=== PATIENT | male | born 1960 | race Caucasian/White ===

== ENCOUNTER 2022-07-07 00:44 | Emergency (ER) | payer BC ==
[2022-07-07] MEDS ORDERED: Aspirin 81 MG Tab.Chew PO ONE (01:23)
[2022-07-07] MEDS ORDERED: Nitroglycerin 0.4 MG Tab.SL SL PRN (01:23)
[2022-07-07 01:30] LABS: BASOPHILS ABSOLUTE AUTO 0.03 K/mm3 (0.01-0.08); BASOPHILS PERCENT AUTO 0.3 % (0.1-1.2); EOSINOPHILS ABSOLUTE AUTO 0.23 K/mm3 (0.04-0.54); EOSINOPHILS PERCENT AUTO 2.4 (0.8-7.0); HEMATOCRIT 43.6 % (40.1-51.0); HEMOGLOBIN 15.3 gm/dl (13.7-17.5); IMMATURE GRAN ABSOLUTE AUTO 0.01 K/mm3 (0.00-0.10); IMMATURE GRAN PERCENT AUTO 0.1 % (<=1.0); LYMPHOCYTES PERCENT AUTO 14.4 % (21.8-53.1); MEAN CORPUSCULAR HEMOGLOBIN 31.1 pg (25.7-32.2); MEAN CORPUSCULAR HGB CONC 35.1 g/dl (32.2-35.5); MEAN CORPUSCULAR VOLUME 88.6 fl (79.0-92.2); MEAN PLATELET VOLUME 9.4 fl (9.4-12.3); MONOCYTES ABSOLUTE AUTO 0.61 K/mm3 (0.30-0.82); MONOCYTES PERCENT AUTO 6.3 % (5.3-12.2); NEUTROPHILS ABSOLUTE AUTO 7.41 K/mm3 (1.78-5.38); NEUTROPHILS PERCENT AUTO 76.5 % (34.0-67.9); PLATELET COUNT,PLT 213 K/mm3 (163-337); RED BLOOD CELL COUNT 4.92 M/mm3 (4.63-6.08); WHITE BLOOD CELL COUNT,WBC 9.69 K/mm3 (4.23-9.07)
[2022-07-07] MEDS ORDERED: Sodium Chloride 0.9% 1,000 ML IV SCH (01:30)
[2022-07-07 01:36] LABS: INR 1.02; PROTHROMBIN TIME 10.9 SECONDS (9.7-12.0)
[2022-07-07 01:37] LABS: D-DIMER QUANTITATIVE 0.2 mg/L (0.19-0.50)
[2022-07-07 01:38] LABS: PTT,PARTIAL THROMBOPLSTIN TIME 24.9 SECONDS (21.7-31.4)
[2022-07-07 01:46] LABS: A/G RATIO 1.2 (1-2); ALANINE AMINOTRANSFERASE,ALT 57 U/L (16-63); ALBUMIN 4.1 g/dl (3.4-5.0); ALKALINE PHOSPHATASE 54 U/L (46-116); ANION GAP 10.2 (5-15); ASPARTATE AMNIOTRANSFERASE,AST 27 U/L (15-37); BILIRUBIN TOTAL 0.5 mg/dL (0.2-1.0); BLOOD UREA NITROGEN,BUN 23 mg/dL (7-18); BUN/CREATININE RATIO 15.3 (14-18); CARBON DIOXIDE,CO2 31 mEq/L (21-32); CHLORIDE,CL 102 mEq/L (98-107); CREATININE 1.5 mg/dL (0.7-1.3); ESTIMATED GFR 53 mL/min (>60); GLUCOSE RANDOM 213 mg/dL (70-99); POTASSIUM,K 3.2 mEq/L (3.5-5.1); PROTEIN TOTAL,TP 7.4 g/dl (6.4-8.2); SODIUM,NA 140 mEq/L (136-145); TROPONIN I HIGH SENSITIVITY 6 pg/mL (<=76)
[2022-07-07] MEDS ORDERED: fentaNYL 100 MCG/2 ML SDV IVPUSH ONE (02:02)
[2022-07-07] MEDS ORDERED: Ondansetron 4 MG/2 ML SDV IVPUSH ONE (02:02)
[2022-07-07] MEDS ORDERED: Potassium Chloride 20 MEQ Tab.ER PO ONE ×2 (03:13→04:52)
== END 2022-07-07 05:00 | disposition home or self-care (01) ==
LOC: JD.ED 00:44
DX: K80.50 Calculus of bile duct without cholangitis or cholecystitis without obstruction (principal)
CPT/HCPCS: 36415; 71045; 80053; 83690; 84484; 85025; 85379; 85610; 85730; 93005; 99285; A9270; 93010; 99284